=== PATIENT | female | born 1960 | race Caucasian/White ===

== ENCOUNTER 2017-03-25 10:56 | Day surgery (SDC) | payer MEDICAID ==
[2017-03-25] MEDS ORDERED: LR 1,000 ML IV ONE (11:03)
[2017-03-25] MEDS ORDERED: LIDOCAINE 1% 5 ML SDV ID PRN (11:03)
[2017-03-25] MEDS ORDERED: PROPOFOL/EMULSION 500 MG/50 ML BOTTLE IV ONE (11:06)
[2017-03-25] MEDS ORDERED: MIDAZOLAM 2 MG/2 ML VIAL ONE (11:06)
[2017-03-25] MEDS ORDERED: LIDOCAINE 2% 5 ML SDV ONE (11:06)
--- NOTE | 2017-03-25 12:29 | GPN ---
[f rep st] PROCEDURE NOTE PREPROCEDURE DIAGNOSIS: Diarrhea, constipation, periumbilical abdominal pain. POSTPROCEDURE DIAGNOSIS: 1. Ascending colon polyp, 2 mm, status post removal. 2. Status post random colon biopsies. PROCEDURES: Colonoscopy with biopsies. MEDICATIONS: Monitored anesthesia care. INDICATIONS: A 56-year-old female with a history of constipation, diarrhea, and periumbilical abdom inal pain, who presents for a diagnostic colonoscopy. The risks and the benefits of the procedure w ere discussed with the patient and consent obtained. Risks include, but not limited to, bleeding, p erforation, and risks related to sedation. The patient is ASA class 2. DESCRIPTION OF PROCEDURE: The adult colonoscope was advanced into the terminal ileum, which appears normal. The ileocecal valve, cecum, and appendiceal orifice appear normal. A 2 mm polyp was remov ed in the ascending colon using cold biopsy forceps. The remaining colon is normal. Random biopsie s were taken using cold biopsy forceps to evaluate for microscopic colitis. Retroflexed views in th e rectum were normal. IMPRESSION: 2 mm polyp removed from the ascending colon, otherwise normal colonoscopy. Status post random biopsies for microscopic colitis. RECOMMENDATION: 1. Discharge to home with escort. 2. Advance diet as tolerated. 3. Follow up on the final pathology results. Results available within 10 days. 4. Repeat colonoscopy determined based on pathology results. If the polyp is found to be adenomato us, repeat colonoscopy in 5 years is recommended. Otherwise, colonoscopy in 10 years is recommended . Thank you for allowing me to participate in the care of your patient. Please do not hesitate to nolvia bates with questions. /[id number]/MODL
== END 2017-03-25 13:40 | disposition home or self-care (01) ==
LOC: FSGY 10:56
PROVIDERS: ATTEND Internal Medicine Gastroenterology
PROC: 0DBE8ZX Excision of Large Intestine, Via Natural or Artificial Opening Endoscopic, Diagnostic (ICD-10-PCS; principal; 2017-03-25 11:30)
DX: K63.5 Polyp of colon (principal); R19.7 Diarrhea, unspecified; K59.00 Constipation, unspecified
CPT/HCPCS: J2250; J2704